=== PATIENT | female | born 1935 | race Caucasian/White ===

== ENCOUNTER 2017-02-28 09:49 | Inpatient (IN) ==
--- NOTE | 2017-02-28 10:04 | Emergency Department Note ---
Disposition Clinical Impression: Acute on chronic diastolic CHF (congestive heart failure) Disposition: Admitted As Inpatient Condition: Good Referrals: Neno Lawrence MD [Primary Care Provider] - Time of Disposition: 11:00 SOB HPI - General Chief Complaint: ED Shortness of Breath/Dyspnea Stated Complaint: SOB Time Seen by Provider: 02/28/17 10:12 Source: EMS - History of Present Illness Patient presents to the emergency department via EMS with chief complaint of shortness of breath. She reports orthopnea throughout the night, states that with exertion this morning she became acute dyspneic. She self-administered an extra 40 mg Lasix tablets at home prior to arrival. She has began to experience increasing diuresis though has ongoing dyspnea. She denies associated chest pain or diaphoresis. She states she has had some nausea. Denies cough or fever. Denies acute lower extremity edema or discomfort. She was admitted to [facility] within the past few weeks for CHF exacerbation. She wears 2 L of O2 at home at all times, she is 85% on 2 L, 90% on 3. - Related Data Home Medications Medication Instructions Recorded Confirmed Clopidogrel [Plavix] 75 mg PO DAILY 03/28/15 02/28/17 HydrALAZINE 25 mg PO BID 03/28/15 02/28/17 Isosorbide MONOnitrate (24 HR) 90 mg PO DAILY 03/28/15 02/28/17 [Imdur] Losartan [Cozaar] 100 mg PO DAILY 03/28/15 02/28/17 Omeprazole [PriLOSEC] 20 mg PO BID 03/28/15 02/28/17 Pravastatin Sodium [Pravachol] 20 mg PO DAILY 03/28/15 02/28/17 [place]-3 Fatty Acids [Fish Oil] 600 mg PO DAILY 12/30/16 02/28/17 Diltiazem HCl [Diltiazem 24Hr Cd] 180 mg PO DAILY 01/01/17 02/28/17 Warfarin [Coumadin] 1 mg PO SUMOTUWEFRSA 01/01/17 02/28/17 Warfarin [Coumadin] 2 mg PO TH 01/01/17 02/28/17 Celecoxib [Celebrex] 200 mg PO DAILY 02/10/17 02/28/17 Fluticasone Propionate Nasal 2 spr NS DAILY 02/10/17 02/28/17 [Flonase] Previous Rx's Medication Instructions Recorded Oxygen 2 l .ROUTE PRN PRN 30 Days 04/12/15 Sotalol [Betapace] 120 mg PO Q12HR #60 tab 02/14/17 Furosemide [Lasix] 40 mg PO DAILY #30 tablet 02/15/17 Gabapentin [Neurontin] 600 mg PO TID #90 tab 02/15/17 HYDROcodone/Acet 5/325 mg [[place] 1 tab PO Q6H PRN #15 tab 02/15/17 5-325 mg] Metoprolol XL (24 HR) Succ [Toprol 100 mg PO BID #30 tab 02/15/17 Xl] Allergies Allergy/AdvReac Type Severity Reaction Status Date / Time codeine Allergy Rash Verified 12/30/16 11:27 morphine Allergy Rash Verified 12/30/16 11:27 Penicillins Allergy Rash Verified 12/30/16 11:27 meperidine [From Demerol] AdvReac Hallucinati Verified 12/30/16 11:27 ng Constitutional: Denies: fever, chills Eyes: Denies: vision change ENT ED: Denies: congestion, dysphagia Cardiovascular: Reports: dyspnea on exertion, orthopnea. Denies: chest pain, palpitations, edema, syncope Respiratory: Reports: dyspnea. Denies: cough, wheezes, hemoptysis Gastrointestinal: Denies: abdominal pain, nausea, vomiting, diarrhea Genitourinary: Denies: urgency, dysuria, frequency, hematuria Musculoskeletal: Denies: back pain, neck pain Integumentary: Denies: rash Neurological: Denies: headache Past Medical History - Past Medical History Source: patient Medical history: Reports: atrial fibrillation, CHF, coronary artery disease, hypertension, kidney stones, renal disease Surgical history: Reports: cholecystectomy, hysterectomy, pacemaker/AICD Psychiatric history: Reports: no psych history - Social History Smoking Status: Never smoker Smokeless Tobacco Status: No Alcohol use: Reports: none Drug use: Reports: none Physical Exam - General Limitations: no limitations General appearance: alert, in no apparent distress - Head Head exam: atraumatic, normocephalic - Eye Eye exam: Present: normal appearance, PERRL. Absent: scleral icterus - ENT ENT exam: normal exam, normal oropharynx, mucous membranes moist - Neck Neck exam: Present: normal inspection, full ROM, trachea midline - Respiratory Respiratory exam: Present: other (Rhonchi bibasilar. She is speaking in 3-5 word short phrases) - Cardiovascular Cardiovascular exam: Present: regular rate, normal rhythm - Abdominal Exam Abdominal exam: Present: soft, Non-Tender. Absent: tenderness, distention, guarding, rebound, rigidity - Extremities Exam Extremities exam: Present: normal capillary refill, pedal edema (Trace edema bilateral lower extremities without asymmetry calf discomfort or signs of DVT). Absent: tenderness, calf tenderness - Expanded Lower Extremity Exam Neurovascular/Tendon exam: Absent: pulse deficit, motor deficit, sensory deficit , tendon deficit - Neurological Exam Neurological exam: Present: alert, oriented X3 - Psychiatric Psychiatric exam: Present: normal affect, normal mood - Skin Skin exam: Present: warm, dry, intact, normal color Course Vital Signs Temperature 98.0 F 02/28/17 09:54 Pulse Rate 68 02/28/17 09:54 Respiratory Rate 18 02/28/17 09:54 Blood Pressure 183/68 02/28/17 09:54 O2 Sat by Pulse Oximetry 85 02/28/17 09:54 Temperature 98.0 F 02/28/17 09:54 Pulse Rate 63 02/28/17 10:25 Respiratory Rate 20 02/28/17 10:25 Blood Pressure 143/65 02/28/17 10:25 O2 Sat by Pulse Oximetry 94 02/28/17 10:25 Oxygen Delivery Oxygen Delivery Nasal Cannula Shortness of Breath/Dyspnea - [facility] Narrative Medical decision making narrative: Time 11 AM: Patient continues to diuresis with her home Lasix administration, feels markedly improved. Resting comfortably at this time. I discussed the case with the hospitalist, she will be admitted to this facility for ongoing evaluation and treatment. - Medical Records Medical records reviewed: Yes I reviewed the patient's medical records. - Lab Data Lab results reviewed: Yes I reviewed the patient's lab results. Result diagrams: 02/28/17 10:20 02/28/17 10:20 Lab Results 02/28/17 02/28/17 02/28/17 Range/Units 10:20 10:20 10:20 WBC 11.0 (4.3-11.1) K/mcL RBC 3.62 L (3.82-4.97) M/mcL Hgb 12.2 (11.5-15.4) g/dL Hct 35.8 (35.3-44.9) % MCV 98.9 (83.0-100.0) fL MCH 33.7 H (28.0-33.3) pg MCHC 34.1 (31.6-35.5) g/dL RDW 14.5 (11.5-14.5) % Plt Count 303 (140-400) K/mcL MPV 9.1 L (9.4-12.4) fL Immature Gran % 0.5 (0-4) % Seg Neutrophils % 79.5 % Lymphocytes % 12.0 % Monocytes % 7.3 % Eosinophils % 0.5 % Basophils % 0.2 % Neutrophils # 8.7 (1.6-8.9) K/mcL Lymphocytes # 1.3 (0.6-4.6) K/mcL Monocytes # 0.8 (0.0-1.3) K/mcL Eosinophils # 0.1 (0.0-0.6) K/mcL Basophils # 0.0 (0.0-0.2) K/mcL PT 22.3 H (9.4-12.1) Seconds INR 2.0 APTT 37.6 H (26.0-36.0) Seconds Sodium 135 L (136-145) mEq/L Potassium 4.4 (3.5-4.5) mEq/L Chloride 100 (98-109) mEq/L Carbon Dioxide 22 (19-29) mEq/L BUN 21 H (7-20) mg/dL Creatinine 0.79 (0.57-1.11) mg/dL Est GFR ( Amer) > 60 (> 60) Est GFR (Non-Af Amer) > 60 (> 60) BUN/Creatinine Ratio 27 H (6-26) Glucose 133 H (70-99) mg/dL Calculated Osmolality 285 (280-300) Calcium 9.2 (8.6-10.8) mg/dL Total Bilirubin 0.7 (0.2-1.2) mg/dL Direct Bilirubin 0.3 (0.0-0.5) mg/dL Indirect Bilirubin 0.4 (0.0-1.2) mg/dL AST 23 (5-34) Units/L ALT 16 (0-55) Units/L Alkaline Phosphatase 78 (38-126) Units/L Troponin I (0-0.03) ng/mL B-Natriuretic Peptide (0-100) pg/mL Serum Total Protein 7.3 (6.0-8.3) g/dL Albumin 3.5 (3.5-5.0) g/dL Globulin 3.8 H (2.4-3.5) g/dL Albumin/Globulin Ratio 0.9 L (1.1-2.2) 02/28/17 02/28/17 Range/Units 10:20 10:20 WBC (4.3-11.1) K/mcL RBC (3.82-4.97) M/mcL Hgb (11.5-15.4) g/dL Hct (35.3-44.9) % MCV (83.0-100.0) fL MCH (28.0-33.3) pg MCHC (31.6-35.5) g/dL RDW (11.5-14.5) % Plt Count (140-400) K/mcL MPV (9.4-12.4) fL Immature Gran % (0-4) % Seg Neutrophils % % Lymphocytes % % Monocytes % % Eosinophils % % Basophils % % Neutrophils # (1.6-8.9) K/mcL Lymphocytes # (0.6-4.6) K/mcL Monocytes # (0.0-1.3) K/mcL Eosinophils # (0.0-0.6) K/mcL Basophils # (0.0-0.2) K/mcL PT (9.4-12.1) Seconds INR APTT (26.0-36.0) Seconds Sodium (136-145) mEq/L Potassium (3.5-4.5) mEq/L Chloride (98-109) mEq/L Carbon Dioxide (19-29) mEq/L BUN (7-20) mg/dL Creatinine (0.57-1.11) mg/dL Est GFR ( Amer) (> 60) Est GFR (Non-Af Amer) (> 60) BUN/Creatinine Ratio (6-26) Glucose (70-99) mg/dL Calculated Osmolality (280-300) Calcium (8.6-10.8) mg/dL Total Bilirubin (0.2-1.2) mg/dL Direct Bilirubin (0.0-0.5) mg/dL Indirect Bilirubin (0.0-1.2) mg/dL AST (5-34) Units/L ALT (0-55) Units/L Alkaline Phosphatase (38-126) Units/L Troponin I 0.00 (0-0.03) ng/mL B-Natriuretic Peptide 921 H (0-100) pg/mL Serum Total Protein (6.0-8.3) g/dL Albumin (3.5-5.0) g/dL Globulin (2.4-3.5) g/dL Albumin/Globulin Ratio (1.1-2.2) ITS Impressions Chest X-Ray 02/28/17 09:54 IMPRESSION: CHF with worsening pulmonary edema from prior exam. D/ / Luis Goldberg MD / Luis Goldberg MD Interpreting Provider: Luis Goldberg MD - Radiology Data Radiology results reviewed: Yes I reviewed the patient's radiology results. - EKG Data EKG attestation: Yes I reviewed and interpreted this EKG. EKG shows normal: Reports: sinus rhythm (Normal sinus rhythm at a rate of 65. No acute ST segment or T-wave changes.)
[2017-02-28 10:31] LABS: Eosinophils % 0.5 %; Hematocrit 35.8 % (35.3-44.9); Hemoglobin 12.2 g/dL (11.5-15.4); Immature Granulocytes % 0.5 % (0-4); Mean Corpuscular HGB Conc 34.1 g/dL (31.6-35.5); Mean Corpuscular Hemoglobin 33.7 pg (28.0-33.3); Mean Corpuscular Volume 98.9 fL (83.0-100.0); Mean Platelet Volume 9.1 fL (9.4-12.4); Monocytes % 7.3 %; Platelet Count 303 K/mcL (140-400); Red Blood Count 3.62 M/mcL (3.82-4.97); Red Cell Distribution Width 14.5 % (11.5-14.5); Segmented Neutrophils % 79.5 %
[2017-02-28 10:32] LABS: Basophils % 0.2 %; Eosinophils # 0.1 K/mcL (0.0-0.6); Lymphocytes # 1.3 K/mcL (0.6-4.6); Monocytes # 0.8 K/mcL (0.0-1.3); Neutrophils # 8.7 K/mcL (1.6-8.9)
[2017-02-28 10:34] LABS: Prothrombin Time 22.3 Seconds (9.4-12.1)
[2017-02-28 10:37] LABS: Activated Partial Thrombo Time 37.6 Seconds (26.0-36.0)
[2017-02-28 10:45] LABS: Alanine Aminotransferase 16 Units/L (0-55); Albumin 3.5 g/dL (3.5-5.0); Albumin/Globulin Ratio 0.9 (1.1-2.2); Alkaline Phosphatase 78 Units/L (38-126); Aspartate Amino Transferase 23 Units/L (5-34); BUN/Creatinine Ratio 27 (6-26); Bilirubin,Direct 0.3 mg/dL (0.0-0.5); Bilirubin,Indirect 0.4 mg/dL (0.0-1.2); Bilirubin,Total 0.7 mg/dL (0.2-1.2); Blood Urea Nitrogen 21 mg/dL (7-20); Calcium 9.2 mg/dL (8.6-10.8); Carbon Dioxide 22 mEq/L (19-29); Chloride 100 mEq/L (98-109); Globulin 3.8 g/dL (2.4-3.5); Glucose 133 mg/dL (70-99); Osmolality,Calculated 285 (280-300); Potassium 4.4 mEq/L (3.5-4.5); Sodium 135 mEq/L (136-145); Total Protein 7.3 g/dL (6.0-8.3); eGFR For African Americans > 60 (> 60); eGFR For Non-African Americans > 60 (> 60)
[2017-02-28] MEDS ORDERED: Naloxone 0.4 MG/ML INJ IVP PRN (11:03)
[2017-02-28] MEDS ORDERED: *HR* HYDROcodone/Acet 5/325 mg TABLET PO PRN (11:06)
[2017-02-28] MEDS ORDERED: *HR* Warfarin 1 MG TABLET PO SCH (11:15)
[2017-02-28] MEDS: *HR* HYDROcodone/Acet 5/325 mg TABLET PO PRN ×3 (13:36→22:50)
--- NOTE | 2017-02-28 14:02 | Internal Med History&Physical ---
Date of Encounter: 02/28/17 Time of Encounter: 13:30 Assessment and Plan (1) Congestive heart failure Current visit: No Status: Acute I will change her Lasix to Bumex and start Lanoxin. Continue other heart failure medications. Qualifiers: Congestive heart failure type: unspecified congestive heart failure type Congestive heart failure chronicity: acute on chronic Qualified Code(s): I50.9 - Heart failure, unspecified (2) Atrial fibrillation Current visit: No Status: Chronic Now in NSR. AF seems to be paroxysmal. Continue Coumadin and sotalol with metoprolol and diltiazem for rate control. Qualifiers: Atrial fibrillation type: paroxysmal Qualified Code(s): I48.0 - Paroxysmal atrial fibrillation (3) Post herpetic neuralgia Current visit: No Status: Acute Continue gabapentin Internal Medicine - H&P: HPI Chief complaint: Dyspnea Admitted From: Home Plans for Post Hospital Care: Home History of present illness: Ms. Palacios is a 81 year old female who came to emergency room stating she had dyspnea increase over the preceding hours. There was no significant chest pain associated. She was evaluated in emergency room and felt to have exacerbation of heart failure. She was admitted to [facility] floor for ongoing care needs. She has been diagnosed with heart failure in the past. She was hospitalized at [facility] approximately 2 weeks ago with an echocardiogram showing normal LV systolic function without EF recorded. She had atrial fibrillation at the time with RVR. There was mild MR and TR. Heart failure/cardiac medications were adjusted. She converted to normal sinus rhythm with increase in sotalol. She reports dyspnea on exertion at home. Her cardiovascular history is significant otherwise for hypertension, renal artery stenosis status post stent placement, and ICD pacemaker placement in the past. She has had several heart catheterizations with the most recent one approximately 10 years ago which showed collateral bypassed vessels. No intervention has been done. Past Med Surg Social Fam HX - Past Medical History Medical history: atrial fibrillation, CHF, coronary artery disease, hypertension , kidney stones, renal disease Psychiatric history: no psych history - Past Surgical History Surgical History: cholecystectomy, hysterectomy, pacemaker/AICD - Social History Smoking Status: Never smoker Smokeless Tobacco Status: No Alcohol use: none Drug use: none - Family History Father Adopted: No Family Member Ethnicity: Non- Living Status: Hx Family Cardiac Disorders: Yes ([place], HTN) Hx Family Respiratory Disorders: No Hx Family Cancer: No Hx Family GI Disorders: Yes (Ulcers) Hx Family Endocrine Disorder: No Hx Family Neuromuscular Disorders: No Hx Family Neurologic Disorders: Yes (stroke) Hx Family HEENT Disorders: No Hx Family Autoimmune Disorders: No Mother Adopted: No Family Member Ethnicity: Non- Living Status: Hx Family Cardiac Disorders: No Hx Family Respiratory Disorders: No Hx Family Cancer: No Hx Family GI Disorders: Yes Hx Family Endocrine Disorder: No Hx Family Neuromuscular Disorders: No Hx Family Neurologic Disorders: No Hx Family Autoimmune Disorders: No Internal Medicine - H&P: Meds Clopidogrel [Plavix] 75 mg PO DAILY 03/28/15 [History] HydrALAZINE 25 mg PO BID 03/28/15 [History] Isosorbide MONOnitrate (24 HR) [Imdur] 90 mg PO DAILY 03/28/15 [History] Losartan [Cozaar] 100 mg PO DAILY 03/28/15 [History] Omeprazole [PriLOSEC] 20 mg PO BID 03/28/15 [History] Pravastatin Sodium [Pravachol] 20 mg PO DAILY 03/28/15 [History] Oxygen 2 l .ROUTE PRN PRN 30 Days 04/12/15 [Rx] [place]-3 Fatty Acids [Fish Oil] 600 mg PO DAILY 12/30/16 [History] Diltiazem HCl [Diltiazem 24Hr Cd] 180 mg PO DAILY 01/01/17 [History] Warfarin [Coumadin] 1 mg PO SUMOTUWEFRSA 01/01/17 [History] Warfarin [Coumadin] 2 mg PO TH 01/01/17 [History] Celecoxib [Celebrex] 200 mg PO DAILY 02/10/17 [History] Fluticasone Propionate Nasal [Flonase] 2 spr NS DAILY 02/10/17 [History] Sotalol [Betapace] 120 mg PO Q12HR #60 tab 02/14/17 [Rx] Furosemide [Lasix] 40 mg PO DAILY #30 tablet 02/15/17 [Rx] Gabapentin [Neurontin] 600 mg PO TID #90 tab 02/15/17 [Rx] HYDROcodone/Acet 5/325 mg [[place] 5-325 mg] 1 tab PO Q6H PRN #15 tab 02/15/17 [Rx ] Metoprolol XL (24 HR) Succ [Toprol Xl] 100 mg PO BID #30 tab 02/15/17 [Rx] 3 Allergy/AdvReac Type Severity Reaction Status Date / Time codeine Allergy Rash Verified 12/30/16 11:27 morphine Allergy Rash Verified 12/30/16 11:27 Penicillins Allergy Rash Verified 12/30/16 11:27 meperidine [From Demerol] AdvReac Hallucinati Verified 12/30/16 11:27 ng All Systems PM: A 10-system review of systems was performed and is negative for pertinent findings except as documented above in the HPI. Review of systems: Gen.: Her weight has been stable past few months Cardiovascular: As per history of present illness Respiratory: She is a lifelong nonsmoker. She does use oxygen at bedtime. GI: She has GERD. She denies disorders of her liver gallbladder or exocrine pancreas : She has had one kidney stone in the past. She denies other kidney or bladder disorders Neurologic: She had a TIA several years ago which has not recurred. She is maintained on Plavix. She denies large distribution strokes or seizures. Endocrine: She has hyperlipidemia but denies diabetes or thyroid disease Hematology/oncology: She denies blood disorders cancers or anemia Psychiatric: She has her feeling of anxiety when she is dyspneic. She denies depression or other mental health issues Musk skeletal: She has DJD but denies gout or other bone joint or muscle disorders. - Constitutional Vitals: Temp Pulse Resp BP Pulse Ox 98.2 F 61 17 153/64 93 02/28/17 12:20 02/28/17 12:20 02/28/17 12:20 02/28/17 12:20 02/28/17 12:20 Exam: Gen.: She is a well-developed well-nourished female who appears in no severe distress at present time HEENT: Head is atraumatic and normo-cephalic. Eyes: EOMI. There is no scleral icterus. Nose: She is wearing oxygen by nasal cannula. Mouth: Mucosa is moist. Neck: Supple and nontender. There is no thyromegaly or adenopathy noted. Heart: Regular without murmurs gallops or ectopics Lungs: No wheezes or crackles are heard. She has egophony in the right lower lung field posteriorly. Abdomen: Soft and nontender. No masses or guarding are noted. Extremities: There is no cyanosis or clubbing noted. There is trace edema at most in the lower legs and dorsal feet bilaterally. She has mild DJD changes of her hands. Neurologic: Mental status: She is talkative and a good historian. Cranial nerves: Smile is symmetric. Forehead wrinkles bilaterally. Tongue protrudes midline. EOMI. Motor: There is no pronator drift. Cerebellar: Finger to nose is intact bilaterally. Skin: Warm and dry Internal Med - H&P Results - Labs CBC & Chem 7: 02/28/17 10:20 02/28/17 10:20
[2017-02-28] MEDS ORDERED: Gabapentin 100 MG CAPSULE PO SCH (16:00)
[2017-02-28] MEDS: *HR* Digoxin 0.125 MG TABLET PO SCH (16:42)
[2017-02-28] MEDS: Bumetanide 1 MG TABLET PO SCH (16:42)
[2017-02-28] MEDS: *HR* Warfarin 1 MG TABLET PO SCH (17:48)
[2017-02-28] MEDS: Gabapentin 300 MG CAPSULE PO SCH (20:41)
[2017-02-28] MEDS: hydrALAZINE 25 MG TABLET PO SCH (20:41)
[2017-02-28] MEDS: Metoprolol XL (24 HR) Succ 50 MG TAB.ER.24H PO SCH (20:41)
[2017-03-01 05:16] LABS: Basophils % 0.2 %; Eosinophils # 0.1 K/mcL (0.0-0.6); Eosinophils % 1.1 %; Hematocrit 32.2 % (35.3-44.9); Hemoglobin 10.8 g/dL (11.5-15.4); Immature Granulocytes % 0.6 % (0-4); Lymphocytes # 1.5 K/mcL (0.6-4.6); Lymphocytes % 23.4 %; Mean Corpuscular HGB Conc 33.5 g/dL (31.6-35.5); Mean Corpuscular Hemoglobin 33.5 pg (28.0-33.3); Monocytes # 0.8 K/mcL (0.0-1.3); Monocytes % 11.9 %; Neutrophils # 4.1 K/mcL (1.6-8.9); Platelet Count 254 K/mcL (140-400); Red Blood Count 3.22 M/mcL (3.82-4.97); Red Cell Distribution Width 14.6 % (11.5-14.5); Segmented Neutrophils % 62.8 %
[2017-03-01 05:32] LABS: BUN/Creatinine Ratio 27 (6-26); Blood Urea Nitrogen 22 mg/dL (7-20); Calcium 8.8 mg/dL (8.6-10.8); Carbon Dioxide 27 mEq/L (19-29); Chloride 101 mEq/L (98-109); Glucose 112 mg/dL (70-99); Magnesium 1.9 mg/dL (1.6-2.6); Osmolality,Calculated 292 (280-300); Potassium 3.7 mEq/L (3.5-4.5); Sodium 139 mEq/L (136-145); eGFR For African Americans > 60 (> 60); eGFR For Non-African Americans > 60 (> 60)
[2017-03-01 05:38] LABS: INR 2.3; Prothrombin Time 25.6 Seconds (9.4-12.1)
[2017-03-01] MEDS: Bumetanide 1 MG TABLET PO SCH ×2 (09:04→18:27)
[2017-03-01] MEDS: Gabapentin 300 MG CAPSULE PO SCH ×2 (09:04→20:11)
[2017-03-01] MEDS: Metoprolol XL (24 HR) Succ 50 MG TAB.ER.24H PO SCH ×2 (09:05→20:10)
[2017-03-01] MEDS: *HR* HYDROcodone/Acet 5/325 mg TABLET PO PRN ×2 (09:05→18:33)
[2017-03-01] MEDS: Isosorbide MONOnitrate (24 HR) 30 MG TAB.ER.24H PO SCH (10:19)
[2017-03-01] MEDS: *HR* Digoxin 0.125 MG TABLET PO SCH (10:19)
[2017-03-01] MEDS: Diltiazem CD (24hr) 180 MG CAPSULE PO SCH (10:47)
[2017-03-01] MEDS: hydrALAZINE 25 MG TABLET PO SCH ×3 (11:58→20:09)
--- NOTE | 2017-03-01 18:14 | Internal Med Progress Note ---
Date of Encounter: 03/01/17 Time of Encounter: 18:10 - Assessment and plan (1) Acute on chronic diastolic CHF (congestive heart failure) Current Visit: Yes Status: Acute Assessment and plan: February 28. Like he is to increase the Bumex to 1 mg twice a day dose now, continue the digoxin. Follow-up BNP, digoxin level, BMP (2) Paroxysmal atrial fibrillation Current Visit: No Status: Acute Assessment and plan: February 28. Continue rate control with sotalol metoprolol diltiazem continue Coumadin and digoxin and digoxin level (3) Hypoxia Current Visit: Yes Status: Acute Assessment and plan: February 28. continue oxygen as needed for hypoxia (4) Impaired fasting glucose Current Visit: Yes Status: Acute Assessment and plan: February 28. Apparently this is new will follow up with the hemoglobin A1c (5) Environmental allergies Current Visit: Yes Status: Acute Assessment and plan: February 28. Order Flonase (6) Post herpetic neuralgia Current Visit: No Status: Acute - Time Spent With Patient 25 - 35 minutes - Subjective Interval history: 81-year-old female presented to emergency room after having acutely short of breath 2 nights ago. She is unsure why her heart is working harder at this point. Reports 2 weeks ago having pneumonia and shingles so she had the left knee fluid had to be removed. He uses oxygen at night but recently she has been using it during the day also. She has a history of paroxysmal fibrillation with RVR. She denies any chest pain she still has shortness of breath but improved with oxygen and she does not feel her heart racing. She had questions about rehabilitation before going back home again. Says she has a history of 21 days recently in rehabilitation she might have to go under the 180 days but not covered as well. In talk with the medical social consultant about that. Patient was concerned the digoxin might cause going atrial fibrillation. His older mostly used used to control rates in atrial fibrillation so I doubt that it is the cause of her atrial fibrillation. Her BNP went up to 1119, dropped to 10.8, BUN 22, which are 112. Answered questions addressed her concerns and apparently uses Flonase at home for environmental allergies. - Constitutional Vitals: Temp Pulse Resp BP Pulse Ox 98.1 F 107 16 114/55 97 03/01/17 14:53 03/01/17 14:53 03/01/17 14:53 03/01/17 14:53 03/01/17 14:53 Exam: General: Alert and oriented, no acute distress Lungs: Clear to auscultation bilaterally without wheezing but bibasilar crackles bilaterally Heart: Irregular rate and rythms without murmer or rubs Abdomen: Soft, nontender, Extremities: Slight edema without redness Internal Medicine: Result - Labs CBC & Chem 7: 03/01/17 05:03 03/01/17 05:03 Labs: Short CBC 03/01/17 Range/Units 05:03 WBC 6.5 (4.3-11.1) K/mcL Hgb 10.8 L (11.5-15.4) g/dL Hct 32.2 L (35.3-44.9) % Plt Count 254 (140-400) K/mcL Neutrophils # 4.1 (1.6-8.9) K/mcL BMP 03/01/17 05:03 Sodium 139 Potassium 3.7 Chloride 101 Carbon Dioxide 27 BUN 22 H Creatinine 0.83 Glucose 112 H Calcium 8.8 Cardiac Enzymes 02/28/17 Range/Units 21:51 Troponin I 0.01 (0-0.03) ng/mL - ABG Interpretation ABG results: PT/INR, D-dimer PT 25.6 Seconds (9.4-12.1) H 03/01/17 05:03 Consult Discharge Plan - Plan
[2017-03-01] MEDS: *HR* Warfarin 1 MG TABLET PO SCH (18:28)
[2017-03-01] MEDS: Spironolactone 25 MG TABLET PO SCH (20:10)
[2017-03-01] MEDS: Fluticasone Propionate Nasal 50 MCG/SPRAY BOTTLE NS SCH (20:11)
[2017-03-02 06:08] LABS: Basophils % 0.3 %; Eosinophils # 0.1 K/mcL (0.0-0.6); Hematocrit 33.4 % (35.3-44.9); Hemoglobin 11.1 g/dL (11.5-15.4); Immature Granulocytes % 0.4 % (0-4); Lymphocytes # 1.7 K/mcL (0.6-4.6); Mean Corpuscular HGB Conc 33.2 g/dL (31.6-35.5); Mean Corpuscular Hemoglobin 33.3 pg (28.0-33.3); Mean Corpuscular Volume 100.3 fL (83.0-100.0); Mean Platelet Volume 9.3 fL (9.4-12.4); Monocytes # 0.9 K/mcL (0.0-1.3); Platelet Count 266 K/mcL (140-400); Red Blood Count 3.33 M/mcL (3.82-4.97); Red Cell Distribution Width 14.5 % (11.5-14.5); Segmented Neutrophils % 59.3 %
[2017-03-02 06:25] LABS: BUN/Creatinine Ratio 22 (6-26); Blood Urea Nitrogen 17 mg/dL (7-20); Calcium 8.8 mg/dL (8.6-10.8); Carbon Dioxide 27 mEq/L (19-29); Chloride 101 mEq/L (98-109); Glucose 113 mg/dL (70-99); Osmolality,Calculated 292 (280-300); Potassium 3.7 mEq/L (3.5-4.5); Sodium 140 mEq/L (136-145); eGFR For African Americans > 60 (> 60); eGFR For Non-African Americans > 60 (> 60)
[2017-03-02 06:34] LABS: Digoxin 0.3 ng/mL (0.8-2.0)
[2017-03-02] MEDS: Bumetanide 1 MG TABLET PO SCH ×2 (07:42→16:36)
[2017-03-02] MEDS: Diltiazem CD (24hr) 180 MG CAPSULE PO SCH (09:39)
[2017-03-02] MEDS: Spironolactone 25 MG TABLET PO SCH (09:39)
[2017-03-02] MEDS: hydrALAZINE 25 MG TABLET PO SCH (09:40)
[2017-03-02] MEDS: Isosorbide MONOnitrate (24 HR) 30 MG TAB.ER.24H PO SCH (09:40)
[2017-03-02] MEDS: Metoprolol XL (24 HR) Succ 50 MG TAB.ER.24H PO SCH ×2 (09:41→21:24)
[2017-03-02] MEDS: *HR* Digoxin 0.125 MG TABLET PO SCH (09:41)
[2017-03-02] MEDS: Gabapentin 300 MG CAPSULE PO SCH ×2 (09:41→21:24)
[2017-03-02] MEDS: Fluticasone Propionate Nasal 50 MCG/SPRAY BOTTLE NS SCH ×2 (09:45→21:24)
[2017-03-02] MEDS: *HR* HYDROcodone/Acet 5/325 mg TABLET PO PRN ×2 (11:06→21:27)
--- NOTE | 2017-03-02 14:13 | Internal Med Progress Note ---
Date of Encounter: 03/02/17 Time of Encounter: 14:00 - Assessment and plan (1) Congestive heart failure Current Visit: No Status: Acute Assessment and plan: March 02. Continue Bumex, Lanoxin, hydralazine, Imdur, Cozaar, Toprol, and Aldactone. She inquired about placement at [facility] Fast track to gain strength before going home since her nurse daughter is leaving town tomorrow to go back home. Qualifiers: Congestive heart failure type: unspecified congestive heart failure type Congestive heart failure chronicity: acute on chronic Qualified Code(s): I50.9 - Heart failure, unspecified (2) Atrial fibrillation Current Visit: No Status: Chronic Assessment and plan: March 02. Continue Coumadin, Lanoxin, and sotalol. Qualifiers: Atrial fibrillation type: paroxysmal Qualified Code(s): I48.0 - Paroxysmal atrial fibrillation (3) Post herpetic neuralgia Current Visit: No Status: Acute (4) Impaired fasting glucose Current Visit: Yes Status: Acute Assessment and plan: February 28. Apparently this is new will follow up with the hemoglobin A1c March 02. Hemoglobin A1c is pending. - Subjective Interval history: March 02. She states she still has dyspnea on exertion. She states she is having a minimally productive cough. - Constitutional Vitals: Temp Pulse Resp BP Pulse Ox 97.8 F 90 20 108/64 98 03/02/17 11:04 03/02/17 11:04 03/02/17 11:04 03/02/17 11:04 03/02/17 11:04 Exam: She is resting comfortably in bed and appears in no acute distress. She did not cough during examination. Heart was irregularly irregular. Lungs were clear without crackles or wheezes. I reviewed her medications and lab results. Internal Medicine: Result - Labs CBC & Chem 7: 03/02/17 05:50 03/02/17 05:50 Labs: Short CBC 03/02/17 Range/Units 05:50 WBC 6.7 (4.3-11.1) K/mcL Hgb 11.1 L (11.5-15.4) g/dL Hct 33.4 L (35.3-44.9) % Plt Count 266 (140-400) K/mcL Neutrophils # 4.0 (1.6-8.9) K/mcL BMP 03/02/17 05:50 Sodium 140 Potassium 3.7 Chloride 101 Carbon Dioxide 27 BUN 17 Creatinine 0.78 Glucose 113 H Calcium 8.8 - ABG Interpretation ABG results: PT/INR, D-dimer PT 25.6 Seconds (9.4-12.1) H 03/01/17 05:03 Consult Discharge Plan - Plan Referrals: Neno Lawrence MD [Primary Care Provider] - 1 week
[2017-03-02 17:20] LABS: Hemoglobin A1C 5.3 %
[2017-03-02] MEDS: *HR* Warfarin 1 MG TABLET PO SCH (18:30)
[2017-03-03] MEDS: hydrALAZINE 25 MG TABLET PO SCH ×3 (04:43→20:37)
[2017-03-03 05:13] LABS: Basophils % 0.2 %; Eosinophils # 0.1 K/mcL (0.0-0.6); Eosinophils % 1.4 %; Hemoglobin 11.3 g/dL (11.5-15.4); Immature Granulocytes % 0.3 % (0-4); Lymphocytes # 2.2 K/mcL (0.6-4.6); Lymphocytes % 33.3 %; Mean Corpuscular HGB Conc 33.2 g/dL (31.6-35.5); Mean Corpuscular Hemoglobin 33.4 pg (28.0-33.3); Mean Corpuscular Volume 100.6 fL (83.0-100.0); Mean Platelet Volume 9.3 fL (9.4-12.4); Monocytes # 0.8 K/mcL (0.0-1.3); Monocytes % 12.3 %; Neutrophils # 3.4 K/mcL (1.6-8.9); Platelet Count 275 K/mcL (140-400); Red Blood Count 3.38 M/mcL (3.82-4.97); Red Cell Distribution Width 14.2 % (11.5-14.5); Segmented Neutrophils % 52.5 %
[2017-03-03 05:24] LABS: INR 2.4; Prothrombin Time 26.4 Seconds (9.4-12.1)
[2017-03-03 05:35] LABS: BUN/Creatinine Ratio 23 (6-26); Blood Urea Nitrogen 18 mg/dL (7-20); Carbon Dioxide 27 mEq/L (19-29); Chloride 100 mEq/L (98-109); Glucose 102 mg/dL (70-99); Osmolality,Calculated 290 (280-300); Potassium 3.9 mEq/L (3.5-4.5); Sodium 139 mEq/L (136-145); eGFR For African Americans > 60 (> 60); eGFR For Non-African Americans > 60 (> 60)
[2017-03-03] MEDS: Metoprolol XL (24 HR) Succ 50 MG TAB.ER.24H PO SCH ×2 (08:10→20:37)
[2017-03-03] MEDS: Spironolactone 25 MG TABLET PO SCH (08:10)
[2017-03-03] MEDS: Bumetanide 1 MG TABLET PO SCH ×2 (08:10→17:14)
[2017-03-03] MEDS: Isosorbide MONOnitrate (24 HR) 30 MG TAB.ER.24H PO SCH (08:10)
[2017-03-03] MEDS: Fluticasone Propionate Nasal 50 MCG/SPRAY BOTTLE NS SCH ×2 (08:11→20:45)
[2017-03-03] MEDS: Diltiazem CD (24hr) 180 MG CAPSULE PO SCH (08:11)
[2017-03-03] MEDS: Gabapentin 300 MG CAPSULE PO SCH ×2 (08:11→20:37)
[2017-03-03] MEDS: *HR* Digoxin 0.125 MG TABLET PO SCH (08:11)
--- NOTE | 2017-03-03 11:22 | Internal Med Progress Note ---
Date of Encounter: 03/03/17 Time of Encounter: 11:15 - Assessment and plan (1) Congestive heart failure Current Visit: No Status: Acute Assessment and plan: March 02. Continue Bumex, Lanoxin, hydralazine, Imdur, Cozaar, Toprol, and Aldactone. She inquired about placement at [facility] Fast track to gain strength before going home since her nurse daughter is leaving [facility] tomorrow to go back home. March 03. Her bn peptide is improved. Continue present medication regimen. She is interested in SNF placement for therapy as per above. Her nurse daughter is apparently leaving [facility] 03/05/2017 to return home. Qualifiers: Congestive heart failure type: unspecified congestive heart failure type Congestive heart failure chronicity: acute on chronic Qualified Code(s): I50.9 - Heart failure, unspecified (2) Atrial fibrillation Current Visit: No Status: Chronic Assessment and plan: March 02. Continue Coumadin, Lanoxin, and sotalol. Qualifiers: Atrial fibrillation type: paroxysmal Qualified Code(s): I48.0 - Paroxysmal atrial fibrillation (3) Post herpetic neuralgia Current Visit: No Status: Acute Assessment and plan: March 03. Continue gabapentin (4) Impaired fasting glucose Current Visit: Yes Status: Acute Assessment and plan: February 28. Apparently this is new will follow up with the hemoglobin A1c March 02. Hemoglobin A1c is pending. March 03. Hemoglobin A1c was acceptable at 5.3%. - Subjective Interval history: March 02. She states she still has dyspnea on exertion. She states she is having a minimally productive cough. March 03. She has no new complaints and feels less dyspneic. - Constitutional Vitals: Temp Pulse Resp BP Pulse Ox 97.8 F 75 18 143/69 98 03/03/17 11:02 03/03/17 11:02 03/03/17 11:02 03/03/17 11:02 03/03/17 11:02 Exam: She is using the bedside commode and appears in no acute distress. Her affect is bright and cheerful. I reviewed her medications and lab results. Internal Medicine: Result - Labs CBC & Chem 7: 03/03/17 04:36 03/03/17 04:36 Labs: Short CBC 03/03/17 Range/Units 04:36 WBC 6.5 (4.3-11.1) K/mcL Hgb 11.3 L (11.5-15.4) g/dL Hct 34.0 L (35.3-44.9) % Plt Count 275 (140-400) K/mcL Neutrophils # 3.4 (1.6-8.9) K/mcL BMP 03/03/17 04:36 Sodium 139 Potassium 3.9 Chloride 100 Carbon Dioxide 27 BUN 18 Creatinine 0.79 Glucose 102 H Calcium 9.0 - ABG Interpretation ABG results: PT/INR, D-dimer PT 26.4 Seconds (9.4-12.1) H 03/03/17 04:36 Consult Discharge Plan - Plan Referrals: Neno Lawrence MD [Primary Care Provider] - 1 week
[2017-03-03] MEDS: *HR* HYDROcodone/Acet 5/325 mg TABLET PO PRN ×2 (12:37→20:45)
[2017-03-03] MEDS: *HR* Warfarin 1 MG TABLET PO SCH (17:14)
--- NOTE | 2017-03-04 07:55 | Electrocardiograph Report ---
[place] [id number] Test Date: 2017-02-28 Pat Name: Lisa Palacios Department: [id number] Room: [facility] Gender: F Reed Worker: [id number] : 1935 Requested By: Rupesh Aiken Order Number: [id number] Reading MD: Jersey Hair DO Measurements Intervals [place] Rate: 65 P: 36 NM: 172 QRS: 44 QRSD: 76 T: 50 QT: 416 QTc: 427 Interpretive Statements SINUS RHYTHM Electronically Signed On 02-28-2017 17:09:25 EDT by Jersey Hair DO
[2017-03-04] MEDS: *HR* HYDROcodone/Acet 5/325 mg TABLET PO PRN ×3 (09:23→20:31)
[2017-03-04] MEDS: *HR* Digoxin 0.125 MG TABLET PO SCH (09:23)
[2017-03-04] MEDS: Metoprolol XL (24 HR) Succ 50 MG TAB.ER.24H PO SCH ×2 (09:23→20:32)
[2017-03-04] MEDS: Isosorbide MONOnitrate (24 HR) 30 MG TAB.ER.24H PO SCH (09:23)
[2017-03-04] MEDS: Spironolactone 25 MG TABLET PO SCH (09:24)
[2017-03-04] MEDS: Gabapentin 300 MG CAPSULE PO SCH ×2 (09:24→20:31)
[2017-03-04] MEDS: Diltiazem CD (24hr) 180 MG CAPSULE PO SCH (09:25)
[2017-03-04] MEDS: Bumetanide 1 MG TABLET PO SCH ×2 (09:25→17:25)
[2017-03-04] MEDS: hydrALAZINE 25 MG TABLET PO SCH ×2 (09:25→20:32)
[2017-03-04] MEDS: Fluticasone Propionate Nasal 50 MCG/SPRAY BOTTLE NS SCH ×2 (09:30→20:32)
--- NOTE | 2017-03-04 09:47 | Internal Med Progress Note ---
Date of Encounter: 03/04/17 Time of Encounter: 09:30 - Assessment and plan (1) Congestive heart failure Current Visit: No Status: Acute Assessment and plan: March 02. Continue Bumex, Lanoxin, hydralazine, Imdur, Cozaar, Toprol, and Aldactone. She inquired about placement at [facility] to gain strength before going home since her nurse daughter is leaving [facility] tomorrow to go back home. March 03. Her bn peptide is improved. Continue present medication regimen. She is interested in SNF placement for therapy as per above. Her nurse daughter is apparently leaving [facility] 03/05/2017 to return home. March 04. Continue present dedication regimen Qualifiers: Congestive heart failure type: unspecified congestive heart failure type Congestive heart failure chronicity: acute on chronic Qualified Code(s): I50.9 - Heart failure, unspecified (2) Atrial fibrillation Current Visit: No Status: Chronic Assessment and plan: March 02. Continue Coumadin, Lanoxin, and sotalol. March 04. Continue present regimen including Coumadin Lanoxin sotalol and diltiazem. Will check dig level and a.m. Qualifiers: Atrial fibrillation type: paroxysmal Qualified Code(s): I48.0 - Paroxysmal atrial fibrillation (3) Post herpetic neuralgia Current Visit: No Status: Acute Assessment and plan: March 03. Continue gabapentin (4) Impaired fasting glucose Current Visit: Yes Status: Acute Assessment and plan: February 28. Apparently this is new will follow up with the hemoglobin A1c March 02. Hemoglobin A1c is pending. March 03. Hemoglobin A1c was acceptable at 5.3%. - Subjective Interval history: March 02. She states she still has dyspnea on exertion. She states she is having a minimally productive cough. March 03. She has no new complaints and feels less dyspneic. March 04. She has no new complaints. - Constitutional Vitals: Temp Pulse Resp BP Pulse Ox 98.4 F 81 18 118/77 94 03/04/17 06:34 03/04/17 06:34 03/04/17 06:34 03/04/17 09:16 03/04/17 06:34 Exam: She is resting comfortably in bed and appears in no acute distress. Her affect is bright and cheerful. Heart is irregularly irregular with rate approximately 60/m. I reviewed her medications and lab results. Internal Medicine: Result - Labs CBC & Chem 7: 03/03/17 04:36 03/03/17 04:36 - ABG Interpretation ABG results: PT/INR, D-dimer PT 26.4 Seconds (9.4-12.1) H 03/03/17 04:36 Consult Discharge Plan - Plan Referrals: Neno Lawrence MD [Primary Care Provider] - 1 week
[2017-03-04] MEDS: *HR* Warfarin 1 MG TABLET PO SCH (17:25)
[2017-03-05 07:21] VITALS: BP 111/69
[2017-03-05 08:00] LABS: Basophils % 0.5 %; Eosinophils # 0.1 K/mcL (0.0-0.6); Eosinophils % 1.2 %; Hematocrit 35.6 % (35.3-44.9); Hemoglobin 11.5 g/dL (11.5-15.4); Immature Granulocytes % 0.5 % (0-4); Lymphocytes # 2.1 K/mcL (0.6-4.6); Lymphocytes % 31.1 %; Mean Corpuscular HGB Conc 32.3 g/dL (31.6-35.5); Mean Corpuscular Hemoglobin 32.7 pg (28.0-33.3); Mean Corpuscular Volume 101.1 fL (83.0-100.0); Mean Platelet Volume 9.4 fL (9.4-12.4); Monocytes # 0.9 K/mcL (0.0-1.3); Neutrophils # 3.6 K/mcL (1.6-8.9); Platelet Count 259 K/mcL (140-400); Red Blood Count 3.52 M/mcL (3.82-4.97); Red Cell Distribution Width 13.9 % (11.5-14.5); Segmented Neutrophils % 53.7 %
[2017-03-05 08:27] LABS: BUN/Creatinine Ratio 29 (6-26); Blood Urea Nitrogen 25 mg/dL (7-20); Calcium 9.5 mg/dL (8.6-10.8); Carbon Dioxide 30 mEq/L (19-29); Chloride 97 mEq/L (98-109); Glucose 99 mg/dL (70-99); Osmolality,Calculated 292 (280-300); Potassium 4.4 mEq/L (3.5-4.5); Sodium 139 mEq/L (136-145); eGFR For African Americans > 60 (> 60); eGFR For Non-African Americans > 60 (> 60)
[2017-03-05 08:42] LABS: Digoxin 0.9 ng/mL (0.8-2.0)
[2017-03-05] MEDS: *HR* HYDROcodone/Acet 5/325 mg TABLET PO PRN (08:54)
[2017-03-05] MEDS: Isosorbide MONOnitrate (24 HR) 30 MG TAB.ER.24H PO SCH (08:55)
[2017-03-05] MEDS: hydrALAZINE 25 MG TABLET PO SCH (08:56)
[2017-03-05] MEDS: Metoprolol XL (24 HR) Succ 50 MG TAB.ER.24H PO SCH (08:57)
[2017-03-05] MEDS: Bumetanide 1 MG TABLET PO SCH (08:58)
[2017-03-05] MEDS: Gabapentin 300 MG CAPSULE PO SCH (08:58)
[2017-03-05] MEDS: Spironolactone 25 MG TABLET PO SCH (08:59)
[2017-03-05] MEDS: *HR* Digoxin 0.125 MG TABLET PO SCH (08:59)
[2017-03-05] MEDS: Fluticasone Propionate Nasal 50 MCG/SPRAY BOTTLE NS SCH (09:00)
[2017-03-05] MEDS: Diltiazem CD (24hr) 180 MG CAPSULE PO SCH (09:00)
--- NOTE | 2017-03-05 09:36 | Discharge Summary ---
Date of Encounter: 03/05/17 Time of Encounter: 09:25 - Discharge Diagnosis (1) Congestive heart failure Priority: Primary Status: Acute Qualifiers: Congestive heart failure type: unspecified congestive heart failure type Congestive heart failure chronicity: acute on chronic Qualified Code(s): I50.9 - Heart failure, unspecified (2) Atrial fibrillation Priority: Secondary Status: Chronic Qualifiers: Atrial fibrillation type: paroxysmal Qualified Code(s): I48.0 - Paroxysmal atrial fibrillation (3) Post herpetic neuralgia Priority: Secondary Status: Acute - Discharge Medications Prescriptions: HYDROcodone/Acet 5/325 mg [[place] 5-325 mg] 1 tab PO Q4HR PRN #240 tab PRN Reason: Pain Gabapentin [Neurontin] 300 mg PO BID #60 Home Medications: Clopidogrel [Plavix] 75 mg PO DAILY 03/28/15 [History] HydrALAZINE 25 mg PO BID 03/28/15 [History] Isosorbide MONOnitrate (24 HR) [Imdur] 90 mg PO DAILY 03/28/15 [History] Losartan [Cozaar] 100 mg PO DAILY 03/28/15 [History] Omeprazole [PriLOSEC] 20 mg PO BID 03/28/15 [History] Pravastatin Sodium [Pravachol] 20 mg PO DAILY 03/28/15 [History] Oxygen 2 l .ROUTE PRN PRN 30 Days 04/12/15 [Rx] [place]-3 Fatty Acids [Fish Oil] 600 mg PO DAILY 12/30/16 [History] Diltiazem HCl [Diltiazem 24Hr Cd] 180 mg PO DAILY 01/01/17 [History] Warfarin [Coumadin] 1 mg PO SUMOTUWEFRSA 01/01/17 [History] Warfarin [Coumadin] 2 mg PO TH 01/01/17 [History] Fluticasone Propionate Nasal [Flonase] 2 spr NS DAILY 02/10/17 [History] Sotalol [Betapace] 120 mg PO Q12HR #60 tab 02/14/17 [Rx] HYDROcodone/Acet 5/325 mg [[place] 5-325 mg] 1 tab PO Q6H PRN #15 tab 02/15/17 [Rx ] Metoprolol XL (24 HR) Succ [Toprol Xl] 100 mg PO BID #30 tab 02/15/17 [Rx] Bumetanide [Bumex] 1 mg PO BIDDIURETIC tab 03/05/17 [Rx] Digoxin [Lanoxin] 0.125 mg PO DAILY tab 03/05/17 [Rx] Gabapentin [Neurontin] 300 mg PO BID #60 03/05/17 [Rx] HYDROcodone/Acet 5/325 mg [[place] 5-325 mg] 1 tab PO Q4HR PRN #240 tab 03/05/17 [ Rx] Spironolactone [Aldactone] 25 mg PO DAILY tab 03/05/17 [Rx] Allergies/Adverse Reactions: 3 Allergy/AdvReac Type Severity Reaction Status Date / Time codeine Allergy Rash Verified 12/30/16 11:27 morphine Allergy Rash Verified 12/30/16 11:27 Penicillins Allergy Rash Verified 12/30/16 11:27 meperidine [From Demerol] AdvReac Hallucinati Verified 12/30/16 11:27 ng Date of admission: 03/02/17 14:16 Primary care physician: Neno Lawrence MD - Patient Status Disposition: Transfer SNF Condition: Good Functional capacity at discharge: uses cane/walker Overall status at discharge: patient is progressing back to baseline - Discharge Instructions Forms: ED Satisfaction Letter - Diet and Activity Activity: as per physical therapy Diet: regular diet Hospital course: Ms. Palacios is a 81 year old female who came to emergency room stating she had dyspnea increase over the preceding hours. There was no significant chest pain associated. She was evaluated in emergency room and felt to have exacerbation of heart failure. She was admitted to [facility] floor for ongoing care needs. Initial orders were written by the emergency room physician. I saw her on February 28 and performed a history and physical. She was changed from Lasix to Bumex. Lanoxin was started. Dr. Johnston saw her on March 01 and added Aldactone. She had gradual clinical improvement with less dyspnea and edema and improvement in bn peptide to 642 on the day of discharge. Physical therapy and occupational therapy assessments were done with ongoing intervention. The patient felt she would benefit from continuing therapy and on March 05 arrangements were completed for her to be discharged to [facility] for ongoing rehabilitation therapy. She will follow with me there. - Time Spent with Patient Total time spent providing and/or coordinating discharge services: - Constitutional Vitals: Temp Pulse Resp BP Pulse Ox 98.5 F 58 17 111/69 99 03/05/17 07:20 03/05/17 07:20 03/05/17 07:20 03/05/17 07:20 03/05/17 07:20
--- NOTE | 2017-03-05 09:42 | Physician Discharge Referral ---
ExtendedCare Referral Info Transfer To: [facility] Provider in Charge: Attila Provider in Charge after Transfer: PCP Cara) Institutional Level of Care: Skilled - Diagnosis (1) Congestive heart failure Priority: Primary Status: Acute (2) Atrial fibrillation Priority: Secondary Status: Chronic (3) Post herpetic neuralgia Priority: Secondary Status: Acute Prognosis: Good Aware of Diagnosis: Patient, Family Aware of Prognosis: Patient, Family - Transfer Medications Prescriptions: HYDROcodone/Acet 5/325 mg [[place] 5-325 mg] 1 tab PO Q4HR PRN #240 tab PRN Reason: Pain Gabapentin [Neurontin] 300 mg PO BID #60 Home Medications: Clopidogrel [Plavix] 75 mg PO DAILY 03/28/15 [History] HydrALAZINE 25 mg PO BID 03/28/15 [History] Isosorbide MONOnitrate (24 HR) [Imdur] 90 mg PO DAILY 03/28/15 [History] Losartan [Cozaar] 100 mg PO DAILY 03/28/15 [History] Omeprazole [PriLOSEC] 20 mg PO BID 03/28/15 [History] Pravastatin Sodium [Pravachol] 20 mg PO DAILY 03/28/15 [History] Oxygen 2 l .ROUTE PRN PRN 30 Days 04/12/15 [Rx] [place]-3 Fatty Acids [Fish Oil] 600 mg PO DAILY 12/30/16 [History] Diltiazem HCl [Diltiazem 24Hr Cd] 180 mg PO DAILY 01/01/17 [History] Warfarin [Coumadin] 1 mg PO SUMOTUWEFRSA 01/01/17 [History] Warfarin [Coumadin] 2 mg PO TH 01/01/17 [History] Fluticasone Propionate Nasal [Flonase] 2 spr NS DAILY 02/10/17 [History] Sotalol [Betapace] 120 mg PO Q12HR #60 tab 02/14/17 [Rx] HYDROcodone/Acet 5/325 mg [[place] 5-325 mg] 1 tab PO Q6H PRN #15 tab 02/15/17 [Rx ] Metoprolol XL (24 HR) Succ [Toprol Xl] 100 mg PO BID #30 tab 02/15/17 [Rx] Bumetanide [Bumex] 1 mg PO BIDDIURETIC tab 03/05/17 [Rx] Digoxin [Lanoxin] 0.125 mg PO DAILY tab 03/05/17 [Rx] Gabapentin [Neurontin] 300 mg PO BID #60 03/05/17 [Rx] HYDROcodone/Acet 5/325 mg [[place] 5-325 mg] 1 tab PO Q4HR PRN #240 tab 03/05/17 [ Rx] Spironolactone [Aldactone] 25 mg PO DAILY tab 03/05/17 [Rx] Allergies/Adverse Reactions: 3 Allergy/AdvReac Type Severity Reaction Status Date / Time codeine Allergy Rash Verified 12/30/16 11:27 morphine Allergy Rash Verified 12/30/16 11:27 Penicillins Allergy Rash Verified 12/30/16 11:27 meperidine [From Demerol] AdvReac Hallucinati Verified 12/30/16 11:27 ng - Respiratory Orders Oxygen / L per min (2 L/m by nasal cannula 20/01.) Smoking Cessation: Smoking cessation has been advised. For more information, call the [employer] Tobacco Quit Line at 1-571-QLSS-NOW. - Mobility Orders Ambulate - Rehabiliation Orders Rehab Potential: Good Rehab Orders: Evaluation for Physical Therapy, Evaluation for Occupational Therapy - Diet Orders Regular CERTIFICATION: I certify that the transfer of the above named patient to an Extended Care Facility is necessary for the continuing treatment of the diagnosis listed. The above information is true and accurate reflection of patient's current condition. Confidential - Redisclosure prohibited without a patient's written consent.
== END 2017-03-05 13:15 | DRG 292 ==
LOC: INPPIK 09:49 → EMEROOPIK 09:49 → INPPIK 11:40
PROVIDERS: ADMIT Internal Medicine; ATTEND Internal Medicine

== ENCOUNTER 2019-01-03 19:42 | Observation (INO) ==
[2019-01-03] MEDS ORDERED: 0.9 % Sodium Chloride 500 ML IVC ONE (20:30)
--- NOTE | 2019-01-03 20:34 | Emergency Department Note ---
Disposition Clinical Impression: Atrial fibrillation with rapid ventricular response, Dehydration Disposition: Admitted As Inpatient Condition: Fair Referrals: Neno Lawrence MD [Primary Care Provider] - Forms: ED Satisfaction Letter Time of Disposition: 21:53 Arrhythmia/Palpitations HPI - General Chief Complaint: ED Arrhythmia/Palpitations Stated Complaint: elevated b/p and heart rate Time Seen by Provider: 01/03/19 20:10 Source: patient, family Mode of arrival: private vehicle Limitations: no limitations Nursing Notes Reviewed: Yes Vital Signs Reviewed: Yes - History of Present Illness Pt Subjective Complaint: rapid heart beat Onset (ago): Just BUSSER Duration: constant Severity: moderate Context: occurred during rest Arrhythmia History: atrial fibrillation Associated symptoms: Reports: chest pain ([place] a tightness in her chest and in her neck) - Related Data Home Medications Medication Instructions Recorded Confirmed Clopidogrel [Plavix] 75 mg PO DAILY 03/28/15 01/03/19 HydrALAZINE 25 mg PO BID 03/28/15 01/03/19 Isosorbide MONOnitrate (24 HR) 90 mg PO DAILY 03/28/15 01/03/19 [Imdur] Losartan [Cozaar] 100 mg PO DAILY 03/28/15 01/03/19 Pravastatin Sodium [Pravachol] 20 mg PO DAILY 03/28/15 01/03/19 [place]-3 Fatty Acids [Fish Oil] 600 mg PO DAILY 12/30/16 05/16/17 Diltiazem HCl [Diltiazem 24Hr Cd] 180 mg PO DAILY 01/01/17 01/03/19 Warfarin [Coumadin] 1 mg PO SUMOTUWEFRSA 01/01/17 01/03/19 Warfarin [Coumadin] 2 mg PO TH 01/01/17 01/03/19 Fluticasone Propionate Nasal 2 spr NS DAILY 02/10/17 01/03/19 [Flonase] Gabapentin [Neurontin] 100 mg PO TID 05/16/17 01/03/19 Nitroglycerin [Nitrostat] 0.4 mg SL PRN PRN 05/16/17 01/03/19 Furosemide [Lasix] 40 mg PO DAILY 01/03/19 01/03/19 Previous Rx's Medication Instructions Recorded Oxygen 2 l .ROUTE PRN PRN 30 Days each 04/12/15 Sotalol [Betapace] 120 mg PO Q12HR #60 tab 08/18/17 Metoprolol XL (24 HR) Succ [Toprol 100 mg PO BID #30 tab 02/15/17 Xl] Digoxin [Lanoxin] 0.125 mg PO DAILY tab 03/05/17 HYDROcodone/Acet 5/325 mg [[place] 1 tab PO Q4HR PRN #240 tab 03/05/17 5-325 mg] Bumetanide [Bumex] 0.5 mg PO BIDDIURETIC #0 tab 05/19/17 Allergies Allergy/AdvReac Type Severity Reaction Status Date / Time codeine Allergy Rash Verified 01/03/19 19:44 morphine Allergy Rash Verified 01/03/19 19:44 meperidine [From Demerol] AdvReac Hallucinati Verified 01/03/19 19:44 ng AMIODERONE AdvReac See Uncoded 01/03/19 20:33 Comments All systems ED: reviewed and negative except as stated. Constitutional: Denies: fever, chills ENT ED: Denies: ear pain, throat pain, congestion Cardiovascular: Reports: chest pain, other (Rapid heartbeat) Respiratory: Denies: cough, dyspnea Gastrointestinal: Denies: abdominal pain, nausea, vomiting Musculoskeletal: Denies: back pain Integumentary: Denies: rash Neurological: Denies: headache Past Medical History - Past Medical History Attestation: Yes The following information was validated with the patient. Source: patient, old records reviewed, nursing notes reviewed Medical history: Reports: atrial fibrillation, CHF, coronary artery disease, hypertension, other Surgical history: Reports: cholecystectomy, hysterectomy, pacemaker/AICD Psychiatric history: Reports: no psych history - Social History Smoking Status: Never smoker Smokeless Tobacco Status: No Alcohol use: Reports: none Drug use: Reports: none Physical Exam - General Limitations: no limitations General appearance: alert, in no apparent distress - Head Head exam: atraumatic, normocephalic, normal inspection - Eye Eye exam: Present: normal appearance, PERRL, EOMI. Absent: scleral icterus, conjunctival injection - ENT ENT exam: normal exam, normal oropharynx, mucous membranes moist, normal external ear exam - Neck Neck exam: Present: normal inspection, full ROM, trachea midline. Absent: meningismus, lymphadenopathy, thyromegaly - Chest Chest inspection: Present: normal inspection, symmetric chest wall rise. Absent: tenderness - Respiratory Respiratory exam: Present: normal lung sounds bilaterally. Absent: respiratory distress, wheezes - Cardiovascular Cardiovascular exam: Present: tachycardia, irregular rhythm, normal heart sounds - Abdominal Exam Abdominal exam: Present: soft, Non-Tender, normal bowel sounds - Extremities Exam Extremities exam: Present: normal inspection. Absent: pedal edema - Neurological Exam Neurological exam: Present: alert, oriented X3 - Psychiatric Psychiatric exam: Present: normal affect, normal mood - Skin Skin exam: Present: warm, dry. Absent: rash Course Course Narrative: Patient presents with a rapid heart rate. She is found to be in atrial fibrillation with rapid ventricular response. Her monitor is running anywhere between 110 and 130. The discomfort in her chest and neck Tim to be due to the rate but we have to be concerned about ischemia. EKG does not show any ischemia. We will get her some Cardizem and control that rate. We will do the cardiac workup. Disposition will be based on diagnostic results and reevaluation. - Reevaluation(s) Reevaluation #1: Patient respond well to the initial 15 of Cardizem and 5 mg per hour drip. Heart rate sometimes tips backup in the 110 range so I am going to give her another 10 mm is a Cardizem as the bolus. Continue the drip at 5. Blood pressure has been fine. I bar he discussed the case with the hospitalist and he is accepted her for admission. No further anticoagulation is indicated at this time. Time: 21:52 - Consultations Consultation #1: Dr. Aiken, hospitalist - I discussed the case with the hospice. He accepted the patient for admission. Time: 21:45 Vital Signs Temperature 98.6 F 01/03/19 19:46 Pulse Rate 104 01/03/19 19:46 Respiratory Rate 20 01/03/19 19:46 Blood Pressure 180/84 01/03/19 19:46 O2 Sat by Pulse Oximetry 93 01/03/19 19:46 Temperature 98.6 F 01/03/19 19:46 Pulse Rate 64 01/03/19 21:28 Respiratory Rate 22 01/03/19 21:28 Blood Pressure 165/64 01/03/19 21:28 O2 Sat by Pulse Oximetry 95 01/03/19 21:28 Oxygen Delivery Oxygen Delivery Nasal Cannula Arrhythmia/Palpitations - Medical Records Medical records reviewed: Yes I reviewed the patient's medical records. - Lab Data Lab results reviewed: Yes I reviewed the patient's lab results. Result diagrams: 01/03/19 20:16 01/03/19 20:16 Lab Results 01/03/19 01/03/19 01/03/19 Range/Units 20:16 20:16 20:16 WBC 7.4 (4.3-11.1) K/mcL RBC 3.68 L (3.82-4.97) M/mcL Hgb 12.0 (11.5-15.4) g/dL Hct 36.0 (35.3-44.9) % MCV 97.8 (83.0-100.0) fL MCH 32.6 (28.0-33.3) pg MCHC 33.3 (31.6-35.5) g/dL RDW 14.4 (11.5-14.5) % Plt Count 280 (140-400) K/mcL MPV 9.6 (9.4-12.4) fL Immature Gran % 0.3 (0-4) % Seg Neutrophils % 55.9 % Lymphocytes % 30.7 % Monocytes % 10.9 % Eosinophils % 1.9 % Basophils % 0.3 % Neutrophils # 4.2 (1.6-8.9) K/mcL Lymphocytes # 2.3 (0.6-4.6) K/mcL Monocytes # 0.8 (0.0-1.3) K/mcL Eosinophils # 0.1 (0.0-0.6) K/mcL Basophils # 0.0 (0.0-0.2) K/mcL PT 18.3 H (9.4-12.1) Seconds INR 1.6 Sodium 134 L (136-145) mEq/L Potassium 4.3 (3.5-5.1) mEq/L Chloride 100 (98-107) mEq/L Carbon Dioxide 23 (23-29) mEq/L BUN 41 H (8-23) mg/dL Creatinine 1.87 H (0.60-1.20) mg/dL Est GFR ( Amer) 31 L (> 60) Est GFR (Non-Af Amer) 26 L (> 60) BUN/Creatinine Ratio 22 (6-26) Glucose 138 H (70-105) mg/dL Calculated Osmolality 290 (280-300) Calcium 9.3 (8.6-10.3) mg/dL Troponin I < 0.03 (< 0.04) ng/mL B-Natriuretic Peptide (Less than 100) pg/mL 01/03/19 Range/Units 20:16 WBC (4.3-11.1) K/mcL RBC (3.82-4.97) M/mcL Hgb (11.5-15.4) g/dL Hct (35.3-44.9) % MCV (83.0-100.0) fL MCH (28.0-33.3) pg MCHC (31.6-35.5) g/dL RDW (11.5-14.5) % Plt Count (140-400) K/mcL MPV (9.4-12.4) fL Immature Gran % (0-4) % Seg Neutrophils % % Lymphocytes % % Monocytes % % Eosinophils % % Basophils % % Neutrophils # (1.6-8.9) K/mcL Lymphocytes # (0.6-4.6) K/mcL Monocytes # (0.0-1.3) K/mcL Eosinophils # (0.0-0.6) K/mcL Basophils # (0.0-0.2) K/mcL PT (9.4-12.1) Seconds INR Sodium (136-145) mEq/L Potassium (3.5-5.1) mEq/L Chloride (98-107) mEq/L Carbon Dioxide (23-29) mEq/L BUN (8-23) mg/dL Creatinine (0.60-1.20) mg/dL Est GFR ( Amer) (> 60) Est GFR (Non-Af Amer) (> 60) BUN/Creatinine Ratio (6-26) Glucose (70-105) mg/dL Calculated Osmolality (280-300) Calcium (8.6-10.3) mg/dL Troponin I (< 0.04) ng/mL B-Natriuretic Peptide 426 H (Less than 100) pg/mL - Radiology Data Radiology results reviewed: Yes I reviewed the patient's radiology results. - EKG Data EKG attestation: Yes I reviewed and interpreted this EKG. EKG results narrative: Twelve-lead EKG performed at 8:03 PM. Ordered, reviewed and determined by ED physician shows atrial fibrillation at a rate of 117. Normal axis. Good hour progression across precordium.
[2019-01-03 20:43] LABS: Basophils % 0.3 %; Eosinophils # 0.1 K/mcL (0.0-0.6); Eosinophils % 1.9 %; Immature Granulocytes % 0.3 % (0-4); Lymphocytes # 2.3 K/mcL (0.6-4.6); Lymphocytes % 30.7 %; Mean Corpuscular HGB Conc 33.3 g/dL (31.6-35.5); Mean Corpuscular Hemoglobin 32.6 pg (28.0-33.3); Mean Corpuscular Volume 97.8 fL (83.0-100.0); Mean Platelet Volume 9.6 fL (9.4-12.4); Monocytes # 0.8 K/mcL (0.0-1.3); Monocytes % 10.9 %; Neutrophils # 4.2 K/mcL (1.6-8.9); Platelet Count 280 K/mcL (140-400); Red Blood Count 3.68 M/mcL (3.82-4.97); Red Cell Distribution Width 14.4 % (11.5-14.5); Segmented Neutrophils % 55.9 %; White Blood Count 7.4 K/mcL (4.3-11.1)
[2019-01-03 20:46] LABS: INR 1.6; Prothrombin Time 18.3 Seconds (9.4-12.1)
[2019-01-03 20:57] LABS: BUN/Creatinine Ratio 22 (6-26); Blood Urea Nitrogen 41 mg/dL (8-23); Calcium 9.3 mg/dL (8.6-10.3); Carbon Dioxide 23 mEq/L (23-29); Chloride 100 mEq/L (98-107); Glucose 138 mg/dL (70-105); Osmolality,Calculated 290 (280-300); Potassium 4.3 mEq/L (3.5-5.1); Sodium 134 mEq/L (136-145); Troponin I < 0.03 ng/mL (< 0.04); eGFR For African Americans 31 (> 60); eGFR For Non-African Americans 26 (> 60)
[2019-01-03] MEDS ORDERED: Naloxone 0.4 MG/ML INJ IVP PRN (22:53)
[2019-01-03] MEDS ORDERED: *HR* Digoxin 0.5 MG/2 ML AMPUL IVP ONE (23:13)
[2019-01-03] MEDS: 0.9 % Sodium Chloride 1,000 ML IVC SCH (23:39)
[2019-01-03] MEDS: *HR* Warfarin 1 MG TABLET PO SCH (23:40)
[2019-01-03] MEDS: Acetaminophen 325 MG TABLET PO PRN (23:47)
[2019-01-04] MEDS ORDERED: *HR* Digoxin 0.5 MG/2 ML AMPUL IVP ONE (05:15)
[2019-01-04] MEDS: 0.9 % Sodium Chloride 1,000 ML IVC SCH (09:49)
[2019-01-04] MEDS: Gabapentin 100 MG CAPSULE PO SCH ×3 (09:51→21:53)
[2019-01-04] MEDS: *HR* Digoxin 0.125 MG TABLET PO SCH (09:51)
[2019-01-04] MEDS: Isosorbide MONOnitrate (24 HR) 30 MG TAB.ER.24H PO SCH (09:51)
[2019-01-04] MEDS: hydrALAZINE 25 MG TABLET PO SCH ×2 (09:51→21:53)
[2019-01-04] MEDS: Fluticasone Propionate Nasal 50 MCG/SPRAY BOTTLE NS SCH (09:52)
[2019-01-04] MEDS: *HR* Warfarin 1 MG TABLET PO SCH (17:11)
--- NOTE | 2019-01-04 17:20 | Internal Med History&Physical ---
Date of Encounter: 01/04/19 Time of Encounter: 16:35 Assessment and Plan (1) Atrial fibrillation with rapid ventricular response Current visit: Yes Status: Acute She was initially placed on Cardizem drip. Her rate has slowed and this has been discontinued. She will resume oral diltiazem dose as at home. Lanoxin has been given to assist in control of ventricular response. Additional Coumadin will be given since INR is subtherapeutic. (2) Diastolic dysfunction with acute on chronic heart failure Current visit: No Status: Acute Continue hydralazine, Imdur, and Cozaar. Lasix will be held due to azotemia. (3) Hypertension Current visit: No Status: Chronic Continue hydralazine, Cozaar, Cardizem and Betapace Qualifiers: Hypertension type: essential hypertension Qualified Code(s): I10 - Essential (primary) hypertension (4) ARF (acute renal failure) Current visit: No Status: Acute Lasix will be held and IV fluids have been ordered. Follow-up labs will be done in a.m. Qualifiers: Qualified Code(s): N17.9 - Acute kidney failure, unspecified Internal Medicine - H&P: HPI Chief complaint: Atrial fibrillation with RVR Admitted From: Emergency Dept Plans for Post Hospital Care: Home History of present illness: Ms. Palacios is a 83 year old female who came to emergency room complaining of sudden onset of tightness in her neck and sensation of rapid heartbeat afternoon of January 03 while doing leisure activity. She found her heart rate to be 131/m and blood pressure 198 systolic. She came to emergency room and was evaluated a nd was found to have atrial fibrillation with RVR and acute renal failure. She was started on Cardizem drip and admitted to [facility] floor for ongoing care needs. She has had chronic paroxysmal atrial fibrillation for several years. She was placed on sotalol approximately 2 years ago and reports only a few episodes of AF recurrence since then. These episodes had controlled ventricular rate and lasted only a relatively short time and spontaneously converted back to NSR. She reports being on amiodarone in the past but this was discontinued due to pulmonary toxicity. She declined consideration of ablation procedure in the past. She states Lasix dose was increased to 40 mg bid approximately 2-3 weeks ago at her last PCP visit for heart failure. Most recent echocardiogram 02/10/2017 sh owed AF with RVR. LV systolic function appeared normal with indeterminate diastolic function assessment due to AF. There was mild mitral regurgitation and mild tricuspid regurgitation. The interventricular septum and posterior wall thickness measurements were elevated 1.60 and 1.30 cm respectively. Left atrium diameter was 3.9 cm. Cardiovascular history is significant otherwise for hypertension, bilateral renal artery stenosis with stent placement, and AICD placement approximately 2011. Most recent heart catheter approximately 2006 showed collateral bypass vessels. No intervention has been done. Past Med Surg Social Fam HX - Past Medical History Medical history: atrial fibrillation, CHF, coronary artery disease, hype rtension, other Additional medical history: shingles Psychiatric history: no psych history - Past Surgical History Surgical History: cholecystectomy, hysterectomy, pacemaker/AICD Additional surgical history: renal stents placed, thoracentesis x2 - Social History Smoking Status: Never smoker Smokeless Tobacco Status: No Alcohol use: none Drug use: none - Family History Father Adopted: No Family Member Ethnicity: Non- Living Status: Hx Family Cardiac Disorders: Yes ([place]/ [place]) Hx Family Respiratory Disorders: No Hx Family Cancer: No Hx Family GI Disorders: Yes (Ulcers) Hx Family Endocrine Disorder: No Hx Family Neuromuscular Disorders: No Hx Family Neurologic Disorders: Yes (stroke) Hx Family HEENT Disorders: No Hx Family Autoimmune Disorders: No Mother Adopted: No Family Member Ethnicity: Non- Living Status: Hx Family Cardiac Disorders: No Hx Family Respiratory Disorders: No Hx Family Cancer: No Hx Family GI Disorders: Yes Hx Family Endocrine Disorder: No Hx Family Neuromuscular Disorders: No Hx Family Neurologic Disorders: Yes (Alzeimer's) Hx Family Autoimmune Disorders: No Internal Medicine - H&P: Meds Clopidogrel [Plavix] 75 mg PO DAILY 03/28/15 [History] HydrALAZINE 25 mg PO BID 03/28/15 [History] Isosorbide MONOnitrate (24 HR) [Imdur] 90 mg PO DAILY 03/28/15 [History] Losartan [Cozaar] 100 mg PO DAILY 03/28/15 [History] Pravastatin Sodium [Pravachol] 20 mg PO DAILY 03/28/15 [History] Oxygen 2 l .ROUTE PRN PRN 30 Days each 04/12/15 [Rx] Diltiazem HCl [Diltiazem 24Hr Cd] 180 mg PO DAILY 01/01/17 [History] Warfarin [Coumadin] 1 mg PO DAILY 01/01/17 [History] Fluticasone Propionate Nasal [Flonase] 2 spr NS DAILY 02/10/17 [History] Sotalol [Betapace] 120 mg PO Q12HR #60 tab 02/14/17 [Rx] Gabapentin [Neurontin] 100 mg PO TID 05/16/17 [History] Nitroglycerin [Nitrostat] 0.4 mg SL PRN PRN 05/16/17 [History] Furosemide [Lasix] 40 mg PO DAILY 01/03/19 [History] Allergy/AdvReac Type Severity Reaction Status Date / Time codeine Allergy Rash Verified 01/03/19 19:44 morphine Allergy Rash Verified 01/03/19 19:44 meperidine [From Demerol] AdvReac Hallucinati Verified 01/03/19 19:44 ng AMIODERONE AdvReac See Uncoded 01/03/19 20:33 Comments All Systems PM: A 10-system review of systems was performed and is negative for pertinent findings except as documented above in the HPI. Review of systems: Review of systems from her February 2017 [facility] hospitalization were reviewed and revised as below. Gen.: Her weight has been stable past few months Cardiovascular: As per history of present illness Respiratory: She is a lifelong nonsmoker. She does use oxygen at bedtime. GI: She has GERD. She denies disorders of her liver gallbladder or exocrine p ancreas : She has had one kidney stone in the past. She denies other kidney or bladder disorders Neurologic: She had a TIA several years ago which has not recurred. She is maintained on Plavix. She denies large distribution strokes or seizures. Endocrine: She has hyperlipidemia but denies diabetes or thyroid disease Hematology/oncology: She denies blood disorders cancers or anemia Psychiatric: She has her feeling of anxiety when she is dyspneic. She denies depression or other mental health issues Musk skeletal: She has DJD but denies gout or other bone joint or muscle disorders. - Constitutional Vitals: Temp Pulse Resp BP Pulse Ox 98.9 F 91 18 150/70 96 01/04/19 14:44 01/04/19 14:44 01/04/19 14:44 01/04/19 14:44 01/04/19 14:44 Exam: Gen.: She is a well-developed well-nourished female resting comfortably in bed who appears in no acute distress HEENT: Head is atraumatic and normocephalic. Eyes: EOMI. There is no scleral icterus. Mouth: Mucosa is moist. Neck: Supple and nontender. There is no thyromegaly or adenopathy noted. Heart: Irregularly irregular with rate approximately 80/m. No murmurs or gallops are heard. Lungs: No wheezes or crackles are heard. Abdomen: Soft and nontender. No masses or guarding are noted. Extremities: There is no cyanosis edema or clubbing noted. Dorsalis pedis and posterior tibial pulses are trace to 1+ palpable bilaterally. Neurologic: Mental status: She is talkative and a good historian. Cranial nerves: Smile is symmetric. Forehead wrinkles bilaterally. Tongue protrudes midline. EOMI. Motor: There is no pronator drift. Cerebellar: Finger to nose is intact bilaterally. Skin: Warm and dry Internal Med - H&P Results - Labs CBC & Chem 7: 01/03/19 20:16 01/03/19 20:16 Labs: Short CBC 01/03/19 Range/Units 20:16 WBC 7.4 (4.3-11.1) K/mcL Hgb 12.0 (11.5-15.4) g/dL Hct 36.0 (35.3-44.9) % Plt Count 280 (140-400) K/mcL Neutrophils # 4.2 (1.6-8.9) K/mcL BMP 01/03/19 20:16 Sodium 134 L Potassium 4.3 Chloride 100 Carbon Dioxide 23 BUN 41 H Creatinine 1.87 H Glucose 138 H Calcium 9.3 Cardiac Enzymes 01/03/19 01/04/19 01/04/19 Range/Units 20:16 02:25 08:07 Troponin I < 0.03 < 0.03 < 0.03 (< 0.04) ng/mL 01/04/19 Range/Units 14:31 Troponin I < 0.03 (< 0.04) ng/mL - Impressions ITS Impressions Chest X-Ray 01/03/19 20:30 IMPRESSION: Small volume bilateral pleural effusion with bibasilar relaxation atelectasis or infiltrate, increased compared with prior study. Calcific atherosclerotic disease aorta. D/ / Tio Almonte / Tio Amlonte Interpreting Provider: Tio Almonte - VTE Reasons for not Prescribing Prophylaxis: Not indicated-Anticoagulated or INR therapeutic
[2019-01-04] MEDS ORDERED: *HR* Warfarin 5 MG TABLET PO ONE (17:31)
[2019-01-04] MEDS: Acetaminophen 325 MG TABLET PO PRN (21:53)
--- NOTE | 2019-01-04 23:11 | Electrocardiograph Report ---
[place] [id number] Test Date: 2019-01-03 Pat Name: Lisa Palacios Department: EDP-12 Room: [facility] Gender: F Plastic Maker: : [id number] Requested By: Familia Rodriguez Order Number: [id number] Reading MD: Val Murray Measurements Intervals [place] Rate: 117 P: CA: QRS: 82 QRSD: 78 T: 43 QT: 313 QTc: 438 Interpretive Statements Atrial fibrillation with rapid ventricular response Nonspecific ST-T abnormalities Electronically Signed On 01-04-2019 23:09:52 EDT by Val Murray
[2019-01-05 07:07] LABS: Basophils % 0.3 %; Eosinophils # 0.1 K/mcL (0.0-0.6); Eosinophils % 1.8 %; Hematocrit 36.3 % (35.3-44.9); Hemoglobin 11.7 g/dL (11.5-15.4); Immature Granulocytes % 0.3 % (0-4); Lymphocytes # 2.3 K/mcL (0.6-4.6); Lymphocytes % 34.6 %; Mean Corpuscular HGB Conc 32.2 g/dL (31.6-35.5); Mean Corpuscular Hemoglobin 33.1 pg (28.0-33.3); Mean Corpuscular Volume 102.5 fL (83.0-100.0); Mean Platelet Volume 9.1 fL (9.4-12.4); Monocytes # 0.8 K/mcL (0.0-1.3); Monocytes % 11.9 %; Neutrophils # 3.4 K/mcL (1.6-8.9); Platelet Count 240 K/mcL (140-400); Red Blood Count 3.54 M/mcL (3.82-4.97); Red Cell Distribution Width 14.3 % (11.5-14.5); Segmented Neutrophils % 51.1 %; White Blood Count 6.6 K/mcL (4.3-11.1)
[2019-01-05] MEDS: Fluticasone Propionate Nasal 50 MCG/SPRAY BOTTLE NS SCH (08:00)
[2019-01-05] MEDS: hydrALAZINE 25 MG TABLET PO SCH (08:00)
[2019-01-05] MEDS: Isosorbide MONOnitrate (24 HR) 30 MG TAB.ER.24H PO SCH (08:00)
[2019-01-05] MEDS: *HR* Digoxin 0.125 MG TABLET PO SCH (08:00)
[2019-01-05] MEDS: Gabapentin 100 MG CAPSULE PO SCH (08:01)
[2019-01-05 08:28] LABS: Alanine Aminotransferase 8 Units/L (7-52); Albumin 3.7 g/dL (3.5-5.7); Albumin/Globulin Ratio 1.2 (1.1-2.2); Alkaline Phosphatase 69 Units/L (34-104); Aspartate Amino Transferase 13 Units/L (13-39); BUN/Creatinine Ratio 22 (6-26); Bilirubin,Total 0.4 mg/dL (0.3-1.0); Blood Urea Nitrogen 22 mg/dL (8-23); Carbon Dioxide 25 mEq/L (23-29); Chloride 108 mEq/L (98-107); Digoxin 1.8 ng/mL (0.8-2.0); Glucose 93 mg/dL (70-105); Osmolality,Calculated 287 (280-300); Potassium 4.5 mEq/L (3.5-5.1); Sodium 137 mEq/L (136-145); Total Protein 6.7 g/dL (6.4-8.9); eGFR For African Americans > 60 (> 60); eGFR For Non-African Americans 53 (> 60)
[2019-01-05] MEDS ORDERED: Furosemide 40 MG TABLET PO ONE (10:15)
--- NOTE | 2019-01-05 10:15 | Discharge Summary ---
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 Palacios is a 83 year old female who came to emergency room complaining of sudden onset of tightness in her neck and sensation of rapid heartbeat afternoon of January 03 while doing leisure activity. She found her heart rate to be 131/m and blood pressure 198 systolic. She came to emergency room and was evaluated and was found to have atrial fibrillation with RVR and acute renal failure. She was started on Cardizem drip and admitted to [facility] for ongoing care needs. Initial orders were written by the emergency room physician. I saw her on January 04 and performed the history and physical. She was initially placed on Cardizem drip in emergency room. This was discontinued and she resumed oral diltiazem a few hours after arrival to [facility]. Lanoxin was given to assist in rate control. Her rate returned to satisfactory range. Lasix was initially held and IV fluids were given. Azotemia significantly improved with BUN and creatinine decreasing to 22 and 1.00 respectively with estimated GFR 53. She will restart Lasix at a dose of 40 mg daily at discharge. When I saw her January 05 she felt improved and stable for discharge home. She remained in atrial fibrillation but rate was controlled at approximately 80/m. She will continue Lanoxin as well as sotalol and Coumadin. She will follow with her PCP Dr. Lawrence within 1 week. - Time Spent with Patient Total time spent providing and/or coordinating discharge services: - Discharge Medications Prescriptions: New Digoxin [Lanoxin] 0.125 mg PO DAILY #30 tablet Continued Clopidogrel [Plavix] 75 mg PO DAILY Pravastatin Sodium [Pravachol] 20 mg PO DAILY Losartan [Cozaar] 100 mg PO DAILY Isosorbide MONOnitrate (24 HR) [Imdur] 90 mg PO DAILY HydrALAZINE 25 mg PO BID Oxygen 2 l .ROUTE PRN PRN 30 Days each PRN Reason: Shortness Of Breath Warfarin [Coumadin] 1 mg PO DAILY Diltiazem HCl [Diltiazem 24Hr Cd] 180 mg PO DAILY Fluticasone Propionate Nasal [Flonase] 2 spr NS DAILY Sotalol [Betapace] 120 mg PO Q12HR #60 tab Nitroglycerin [Nitrostat] 0.4 mg SL PRN PRN PRN Reason: Pain Gabapentin [Neurontin] 100 mg PO TID Furosemide [Lasix] 40 mg PO DAILY Home Medications: Clopidogrel [Plavix] 75 mg PO DAILY 03/28/15 [History] HydrALAZINE 25 mg PO BID 03/28/15 [History] Isosorbide MONOnitrate (24 HR) [Imdur] 90 mg PO DAILY 03/28/15 [History] Losartan [Cozaar] 100 mg PO DAILY 03/28/15 [History] Pravastatin Sodium [Pravachol] 20 mg PO DAILY 03/28/15 [History] Oxygen 2 l .ROUTE PRN PRN 30 Days each 04/12/15 [Rx] Diltiazem HCl [Diltiazem 24Hr Cd] 180 mg PO DAILY 01/01/17 [History] Warfarin [Coumadin] 1 mg PO DAILY 01/01/17 [History] Fluticasone Propionate Nasal [Flonase] 2 spr NS DAILY 02/10/17 [History] Sotalol [Betapace] 120 mg PO Q12HR #60 tab 02/14/17 [Rx] Gabapentin [Neurontin] 100 mg PO TID 05/16/17 [History] Nitroglycerin [Nitrostat] 0.4 mg SL PRN PRN 05/16/17 [History] Furosemide [Lasix] 40 mg PO DAILY 01/03/19 [History] Digoxin [Lanoxin] 0.125 mg PO DAILY #30 tablet 01/05/19 [Rx] Allergies/Adverse Reactions: Allergy/AdvReac Type Severity Reaction Status Date / Time codeine Allergy Rash Verified 01/03/19 19:44 morphine Allergy Rash Verified 01/03/19 19:44 meperidine [From Demerol] AdvReac Hallucinati Verified 01/03/19 19:44 ng AMIODERONE AdvReac See Uncoded 01/03/19 20:33 Comments Date of admission: 01/03/19 22:04 Primary care physician: Neno Lawrence MD - Constitutional Vitals: Temp Pulse Resp BP Pulse Ox 97.6 F 92 17 184/75 98 01/05/19 07:37 01/05/19 07:37 01/05/19 07:37 01/05/19 07:37 01/05/19 07:37 - Patient Status Disposition: Home, Self-Care Condition: Fair - Discharge Instructions Follow Up With: Neno Lawrence MD [Primary Care Provider] - 1 week - Diet and Activity Activity: resume usual activities as tolerated Diet: advance to your usual diet - VTE Reasons for not Prescribing Prophylaxis: Not indicated-Anticoagulated or INR therapeutic
[2019-01-05 11:49] VITALS: BP 156/84
[2019-01-07] MEDS ORDERED: *HR* Warfarin 2 MG TABLET PO SCH (18:00)
== END 2019-01-05 13:30 | disposition home or self-care (01) ==
LOC: INPPIK 19:42 → EMEROOPIK 19:42 → INPPIK 22:35
PROVIDERS: ADMIT Internal Medicine; ATTEND Internal Medicine

== ENCOUNTER 2019-07-10 11:43 | Inpatient (IN) ==
[2019-07-10] MEDS ORDERED: Furosemide 40 MG/4 ML VIAL IVP ONE (12:02)
[2019-07-10 12:40] LABS: Basophils % 0.3 %; Eosinophils # 0.2 K/mcL (0.0-0.6); Eosinophils % 2.2 %; Hematocrit 29.7 % (35.3-44.9); Hemoglobin 9.6 g/dL (11.5-15.4); Immature Granulocytes % 0.4 % (0-4); Lymphocytes # 1.2 K/mcL (0.6-4.6); Lymphocytes % 16.3 %; Mean Corpuscular HGB Conc 32.3 g/dL (31.6-35.5); Mean Corpuscular Hemoglobin 31.4 pg (28.0-33.3); Mean Corpuscular Volume 97.1 fL (83.0-100.0); Mean Platelet Volume 9.1 fL (9.4-12.4); Monocytes # 0.7 K/mcL (0.0-1.3); Monocytes % 9.7 %; Neutrophils # 5.1 K/mcL (1.6-8.9); Platelet Count 247 K/mcL (140-400); Red Blood Count 3.06 M/mcL (3.82-4.97); Red Cell Distribution Width 14.5 % (11.5-14.5); Segmented Neutrophils % 71.1 %; White Blood Count 7.1 K/mcL (4.3-11.1)
[2019-07-10 12:47] LABS: INR 2.6; Prothrombin Time 29.2 Seconds (9.4-12.1)
[2019-07-10 12:58] LABS: BUN/Creatinine Ratio 29 (6-26); Blood Urea Nitrogen 36 mg/dL (8-23); Calcium 9.1 mg/dL (8.6-10.3); Carbon Dioxide 25 mEq/L (23-29); Chloride 98 mEq/L (98-107); Glucose 106 mg/dL (70-105); Osmolality,Calculated 281 (280-300); Potassium 4.6 mEq/L (3.5-5.1); Sodium 131 mEq/L (136-145); eGFR For African Americans 49 (> 60); eGFR For Non-African Americans 41 (> 60)
[2019-07-10 12:59] LABS: Troponin I < 0.03 ng/mL (< 0.04)
[2019-07-10] MEDS ORDERED: Mag Hydrox/Al Hydrox/Simeth 30 ML UDC PO PRN (13:22)
[2019-07-10] MEDS ORDERED: Naloxone 0.4 MG/ML INJ IVP PRN (13:22)
[2019-07-10] MEDS ORDERED: Ondansetron 4 MG/2 ML VIAL IVP PRN (13:22)
[2019-07-10] MEDS ORDERED: MOM Conc 10 ML UD.LIQ PO PRN (13:22)
[2019-07-10] MEDS: Acetaminophen 325 MG TABLET PO PRN ×2 (15:28→22:17)
[2019-07-10] MEDS: Furosemide 40 MG/4 ML VIAL IVP SCH (17:55)
[2019-07-10] MEDS ORDERED: Nitroglycerin 0.4 MG TAB.SUBL SL PRN (18:08)
[2019-07-10] MEDS ORDERED: Gabapentin 300 MG CAPSULE PO PRN (18:08)
[2019-07-10] MEDS ORDERED: *HR* Warfarin 3 MG TABLET PO ONE (20:18)
[2019-07-10] MEDS: Melatonin 3 MG TABLET PO SCH (20:35)
[2019-07-11 08:17] LABS: Hematocrit 29.1 % (35.3-44.9); Hemoglobin 9.3 g/dL (11.5-15.4); Mean Corpuscular Hemoglobin 31.2 pg (28.0-33.3); Mean Corpuscular Volume 97.7 fL (83.0-100.0); Mean Platelet Volume 9.6 fL (9.4-12.4); Platelet Count 247 K/mcL (140-400); Red Blood Count 2.98 M/mcL (3.82-4.97); Red Cell Distribution Width 14.6 % (11.5-14.5); White Blood Count 5.5 K/mcL (4.3-11.1)
[2019-07-11 08:18] LABS: Prothrombin Time 33.9 Seconds (9.4-12.1)
[2019-07-11 08:28] LABS: Potassium 4.4 mEq/L (3.5-5.1)
[2019-07-11] MEDS: Furosemide 40 MG/4 ML VIAL IVP SCH ×2 (08:53→17:13)
[2019-07-11] MEDS: amLODIPine 5 MG TABLET PO SCH (08:54)
[2019-07-11] MEDS: Warfarin perPT PO SCH (08:54)
[2019-07-11] MEDS: Cholecalciferol (D-3) 1,000 UNIT (25MCG) TABLET PO SCH (08:54)
[2019-07-11] MEDS: Loratadine 10 MG TABLET PO SCH (08:54)
[2019-07-11] MEDS: Fluticasone Propionate Nasal 50 MCG/SPRAY BOTTLE NS SCH (09:02)
[2019-07-11 09:44] LABS: Creatinine,Urine 39 mg/dL
[2019-07-11] MEDS: Gabapentin 300 MG CAPSULE PO SCH ×2 (17:12→20:01)
[2019-07-11] MEDS: Celecoxib 100 MG CAPSULE PO SCH (17:16)
[2019-07-11] MEDS ORDERED: *HR* Warfarin 1 MG TABLET PO ONE (18:00)
[2019-07-11] MEDS: Melatonin 3 MG TABLET PO SCH (20:01)
[2019-07-12 06:59] LABS: INR 2.7; Prothrombin Time 30.3 Seconds (9.4-12.1)
[2019-07-12] MEDS: Furosemide 40 MG/4 ML VIAL IVP SCH (08:03)
[2019-07-12] MEDS: Isosorbide MONOnitrate (24 HR) 60 MG TAB.ER.24H PO SCH (08:03)
[2019-07-12] MEDS: Gabapentin 300 MG CAPSULE PO SCH ×3 (08:03→20:33)
[2019-07-12] MEDS: Celecoxib 100 MG CAPSULE PO SCH (08:03)
[2019-07-12] MEDS: Cholecalciferol (D-3) 1,000 UNIT (25MCG) TABLET PO SCH (08:03)
[2019-07-12] MEDS: Loratadine 10 MG TABLET PO SCH (08:03)
[2019-07-12] MEDS: Isosorbide MONOnitrate (24 HR) 30 MG TAB.ER.24H PO SCH (08:03)
[2019-07-12] MEDS: amLODIPine 5 MG TABLET PO SCH (08:03)
[2019-07-12] MEDS: Fluticasone Propionate Nasal 50 MCG/SPRAY BOTTLE NS SCH (08:09)
[2019-07-12] MEDS: Warfarin perPT PO SCH (08:09)
[2019-07-12 11:14] LABS: Calcium 9.1 mg/dL (8.6-10.3); Potassium 4.3 mEq/L (3.5-5.1)
[2019-07-12] MEDS: Ringers Solution, Lactated 1,000 ML IVC SCH ×2 (12:40→22:59)
[2019-07-12] MEDS ORDERED: Warfarin perPT PO SCH (18:00)
[2019-07-12] MEDS ORDERED: *HR* Warfarin 1 MG TABLET PO ONE (18:00)
[2019-07-12] MEDS: Melatonin 3 MG TABLET PO SCH (20:33)
[2019-07-13] MEDS: Ringers Solution, Lactated 1,000 ML IVC SCH (05:27)
[2019-07-13 06:34] VITALS: BP 134/79
[2019-07-13 06:42] LABS: INR 2.8; Prothrombin Time 31.3 Seconds (9.4-12.1)
[2019-07-13] MEDS: Isosorbide MONOnitrate (24 HR) 60 MG TAB.ER.24H PO SCH (07:53)
[2019-07-13] MEDS: Fluticasone Propionate Nasal 50 MCG/SPRAY BOTTLE NS SCH (07:53)
[2019-07-13] MEDS: Gabapentin 300 MG CAPSULE PO SCH (07:54)
[2019-07-13] MEDS: Isosorbide MONOnitrate (24 HR) 30 MG TAB.ER.24H PO SCH (07:54)
[2019-07-13] MEDS: Cholecalciferol (D-3) 1,000 UNIT (25MCG) TABLET PO SCH (07:54)
[2019-07-13] MEDS: amLODIPine 5 MG TABLET PO SCH (07:54)
[2019-07-13] MEDS: Loratadine 10 MG TABLET PO SCH (07:54)
[2019-07-13] MEDS: Acetaminophen 325 MG TABLET PO PRN (08:03)
[2019-07-13 09:22] LABS: Calcium 8.8 mg/dL (8.6-10.3); Potassium 4.4 mEq/L (3.5-5.1)
[2019-07-13] MEDS ORDERED: Furosemide 20 MG/2 ML VIAL IVP ONE (10:22)
== END 2019-07-13 12:32 | disposition home or self-care (01) | DRG 291 ==
LOC: INPPIK 11:43 → EMEROOPIK 11:43 → SUATTDRO 13:19 → INPPIK 15:05
PROVIDERS: ADMIT Internal Medicine; ATTEND Family Medicine